=== PATIENT | female | born 1965 | race Caucasian/White ===

== ENCOUNTER → 2019-08-12 09:04 | Outpatient (CLI) | payer BC ==
[2009-03-14 08:37] VITALS: BMI 27.9
[2019-08-12 16:27] LABS: HEMATOCRIT 43.7 % (36.0-48.0); HEMOGLOBIN 14.2 g/dL (12-16); MCH 32.8 pg (26.0-34.0); MCHC 32.5 g/dL (31.0-37.0); MCV 100.9 fL (80.0-100.0); MEAN PLATELET VOLUME 11.5 fL (7.4-10.4); RBC 4.33 10x6/uL (4.00-5.40); RDW 13.9 % (11.5-14.5); WBC 7.9 10x3/uL (4.8-10.8)
[2019-08-12 16:33] LABS: PLATELET COUNT 268 10x3/uL (130-400)
[2019-08-12 16:44] LABS: ALBUMIN 4.4 g/dL (3.4-5.0); ALKALINE PHOSPHATASE 67 U/L (30-120); ALT (SGPT) 34 U/L (10-68); BILIRUBIN - TOTAL 0.42 mg/dL (0.2-1.3); CALC OSMOLALITY 275 mosm/kg (275-300); CALCIUM 9.3 mg/dL (8.5-10.1); CARBON DIOXIDE 31.7 mmol/L (21.0-32.0); CHLORIDE - SERUM 101 mmol/L (98-107); CREATININE - SERUM 0.8 mg/dL (0.6-1.3); GLUCOSE 86 mg/dL (74-106); SODIUM 139 mmol/L (136-145); UREA NITROGEN 10 mg/dL (7-18); eGFR NON AFRICAN AMERICAN 79 mL/min (90-120)
[2019-08-12 17:24] LABS: EOSINOPHILS 5 % (0-7); LYMPHOCYTES 30 % (15-50); NEUTROPHILS 65 % (40-80); PLATELET ESTIMATE NORMAL
== END | disposition home or self-care (01) ==
LOC: D.LABREF 09:04
PROVIDERS: ATTEND Legal Medicine
DX: Z85.3 Personal history of malignant neoplasm of breast (principal)

== ENCOUNTER → 2019-09-07 09:49 | Outpatient (CLI) | payer BC ==
[2009-03-14 08:37] VITALS: BMI 27.9
== END | disposition home or self-care (01) ==
LOC: D.LAB 09:49
PROVIDERS: ATTEND Nurse Practitioner
DX: Z11.59 Encounter for screening for other viral diseases (principal)

== ENCOUNTER → 2019-09-09 14:49 | Outpatient (CLI) | payer MEDICAID ==
[2009-03-14 08:37] VITALS: BMI 27.9
== END | disposition home or self-care (01) ==
LOC: D.RT 07-24 08:00
PROVIDERS: ATTEND Nurse Practitioner
DX: R06.02 Shortness of breath (principal)